=== PATIENT | female | born 1950 | race Caucasian/White ===

== ENCOUNTER → 2017-08-22 07:38 | Outpatient (CLI) | payer OTHER, SELFPAY ==
[2017-08-22 08:13] LABS: Absolute Lymphocyte Count 1.66 X10^3/ul (0.83-4.51); Absolute Neutrophil Count 1.7 X10^3/uL (2.0-7.7); Basophil# 0.01 X10^3/uL; Basophil% 0.3 % (0-1); Eosinophil# 0.07 X10^3/uL; Eosinophils% 1.9 % (0-5); Hematocrit 36.9 % (37-47); Hemoglobin 12.3 g/dl (12.0-15.0); Lymphocyte # 1.66 X10^3/ul (4.0); Mean Corp Hgb Conc 33.3 g/gl (32-36); Mean Corpuscular Hgb 30.2 pg (27.0-32.0); Mean Corpuscular Volume 90.7 fL (81-99); Mean Platelet Vol. 10.9 fl (6.2-12.0); Monocyte# 0.25 X10^3/uL; Monocyte% 6.8 % (0-10); Platelet Count 178 K/mm3 (150-450); RBC Distribution Width CV 13.2 % (11.6-14.6); Red Blood Count 4.07 M/mm3 (4.2-5.4); White Blood Count 3.7 K/mm3 (4.4-11.0)
[2017-08-22 08:15] LABS: POSITIVE COUNT NO; POSITIVE DIFFERENTIAL NO; POSITIVE MORPHOLOGY NO
[2017-08-22 08:43] LABS: AST(SGOT) 17 U/L (15-37); Alanine Aminotransfer ALT/SGPT 37 U/L (13-56); Albumin, Serum 3.8 g/dL (3.2-5.0); Alkaline Phosphatase 66 U/L (45-117); Anion Gap 5 (5-15); BUN 13 mg/dL (7-18); BUN/Creat Ratio 18.7 RATIO (10-20); Calcium,Total 8.7 mg/dL (8.5-10.1); Chloride 106 mmol/L (98-107); Cholesterol 261 mg/dL (200); EST Glomerular Filtration Rate 90 mL/min (>60); Est Glom Filt Rate - Afr Amer 109 mL/min (>60); Globulin 3.7 g/dL (2.2-4.2); Glucose 88 mg/dL (74-106); High Density Lipoprotein 86 mg/dL; Potassium 3.7 mmol/L (3.5-5.1); Protein, Total 7.5 g/dL (6.4-8.2); Sodium Level 142 mmol/L (136-145); T4 Free Direct 1.07 ng/dL (0.76-1.46); Thyroid Stim Hormone (TSH) 2.63 uIU/mL (0.358-3.74); Triglycerides 93 mg/dL; Very Low Density Lipoprotein 19 mg/dL (5-40)
[2017-08-24 09:36] LABS: T3 Total - Triiodothyronine 1.02 ng/mL (0.6-1.81)
== END ==
PROVIDERS: Family Provider Family Medicine; PCP Family Medicine; Visit Provider Family Medicine
DX: Z00.00 Encounter for general adult medical examination without abnormal findings (principal)
CPT/HCPCS: 36415; 80053; 80061; 84439; 84443; 84480; 85025

== ENCOUNTER → 2017-09-08 07:25 | Outpatient (CLI) | payer OTHER, SELFPAY ==
--- NOTE | 2017-09-08 06:59 | HPBI_ITS ---
MAMMOGRAPHY - BILATERAL SCREENING REASON FOR EXAM: Female, 67 years old. Routine annual screening examination. PERTINENT HISTORY: Non-contributory. TECHNIQUE: Digital bilateral breast navya (3D mammographic acquisition) in the CC and MLO projections. 2-D mediolateral oblique (MLO) and craniocaudad (CC) views of both breasts were obtained. CAD: Full Field Digital Mammography with Computer Added Detection was performed. COMPARISON: Comparison is made with prior study dated August 18, 2016 and August 17, 2015. FINDINGS: Breast Composition: The breasts are heterogeneously dense, which may obscure small masses. There are no dominant masses or suspicious calcifications. No other significant abnormalities are identified. There has been no significant change since the prior study. HPBI/SCREENING MAMM (CAD), BILAT IMPRESSION: Stable bilateral screening mammogram. Yearly follow-up mammogram recommended. (A) ASSESSMENT CATEGORY: BIRADS Category 1: Negative. A letter regarding these results will be sent to the patient by the facility within 30 days. Approximately 10% of breast cancers are not detected by mammography. A normal mammogram should not delay biopsy of a clinically suspicious abnormality. [id number] Electronically Signed: Tom Chung MD at 8:15 EST Tel [phone], Service support ,
== END ==
PROVIDERS: Family Provider Family Medicine; PCP Family Medicine; Visit Provider Family Medicine
DX: Z12.31 Encounter for screening mammogram for malignant neoplasm of breast (principal)
CPT/HCPCS: 77063; 77067

== ENCOUNTER → 2018-03-30 06:24 | Outpatient (CLI) | payer OTHER, SELFPAY ==
[2018-03-30 07:54] LABS: Cholesterol 246 mg/dL (200); High Density Lipoprotein 74 mg/dL; Triglycerides 78 mg/dL; Very Low Density Lipoprotein 16 mg/dL (5-40)
== END ==
PROVIDERS: Family Provider Family Medicine; PCP Family Medicine; Visit Provider Family Medicine
DX: E78.00 Pure hypercholesterolemia, unspecified (principal)
CPT/HCPCS: 36415; 80061

== ENCOUNTER → 2019-06-07 16:29 | Outpatient (CLI) | payer SELFPAY ==
--- NOTE | 2019-06-07 16:42 | BI_ITS ---
MAMMOGRAPHY - BILATERAL SCREENING 3-D TOMOSYNTHESIS REASON FOR EXAM: Female, 69 years old. There is bases previously ( PERTINENT HISTORY: No significant family history. TECHNIQUE: 2-D mammograms and 3-D Tomosynthesis of the breast (s) were performed. CAD was performed. COMPARISON: September 08, 2017 FINDINGS: The breast composition is heterogeneously dense breasts similar to what was noted before Scattered benign calcifications are seen. No dense spiculated masses or suspicious microcalcifications are identified. No architectural distortion is identified. There is no skin thickening or nipple retraction. There has been no significant change since the prior study of SEPTEMBER 08, 2017. BI/SCREEN MAMM (CAD) W/NEFTALY BILAT IMPRESSION: No mammographic signs of malignancy. Routine yearly mammograms recommended. ASSESSMENT CATEGORY: BIRADS Category 1: Negative. A letter regarding these results will be sent to the patient by the facility within 30 days. FOLLOW UP RECOMMENDATION: Yearly follow up mammogram recommended. (A) Approximately 10% of breast cancers are not detected by mammography. A normal mammogram should not delay biopsy of a clinically suspicious abnormality. Electronically Signed: Nimco Morton, at 12:52 EST Tel , Service support ,
== END ==
PROVIDERS: Family Provider Family Medicine; PCP Family Medicine; Referring Provider Family Medicine; Visit Provider Family Medicine
DX: Z12.31 Encounter for screening mammogram for malignant neoplasm of breast (principal)
CPT/HCPCS: 77063; 77067

== ENCOUNTER → 2019-06-14 06:23 | Outpatient (CLI) | payer OTHER, SELFPAY ==
[2019-06-14 08:33] LABS: Absolute Lymphocyte Count 2.06 X10^3/uL (0.83-4.51); Absolute Neutrophil Count 2.6 X10^3/uL (2.0-7.7); Basophil# 0.01 X10^3/uL; Basophil% 0.2 % (0-1); Eosinophil# 0.05 X10^3/uL; Hematocrit 38.9 % (37-47); Hemoglobin 12.8 g/dL (12.0-15.0); Lymphocyte # 2.06 X10^3/ul (4.0); Mean Corp Hgb Conc 32.9 g/dL (32-36); Mean Corpuscular Volume 91.1 fL (81-99); Mean Platelet Vol. 11.2 fl (6.2-12.0); Monocyte# 0.34 X10^3/uL; Monocyte% 6.8 % (0-10); NRBC Flagged by Analyzer 0 % (0-5); Neutrophil # 2.55 X10^3/uL (2.7-7.7); Neutrophil % 50.8 % (47-70); Platelet Count 185 K/mm3 (150-450); RBC Distribution Width CV 12.5 % (11.6-14.6); RBC Distribution Width SD 41.5 fl (35.1-43.9); Red Blood Count 4.27 M/mm3 (4.2-5.4)
[2019-06-14 09:11] LABS: AST(SGOT) 19 U/L (15-37); Alanine Aminotransfer ALT/SGPT 40 U/L (13-56); Albumin, Serum 3.7 g/dL (3.2-5.0); Alkaline Phosphatase 74 U/L (45-117); Anion Gap 5 (5-15); BUN 12 mg/dL (7-18); Calcium,Total 8.8 mg/dL (8.5-10.1); Chloride 105 mmol/L (98-107); Cholesterol 242 mg/dL (200); Creatinine, Serum 0.63 mg/dL (0.55-1.02); EST Glomerular Filtration Rate 100 mL/min (>60); Est Glom Filt Rate - Afr Amer 121 mL/min (>60); Free T3 3.1 pg/mL (2.18-3.98); Globulin 3.6 g/dL (2.2-4.2); Glucose 81 mg/dL (74-106); High Density Lipoprotein 77 mg/dL; Potassium 3.7 mmol/L (3.5-5.1); Protein, Total 7.3 g/dL (6.4-8.2); Sodium Level 141 mmol/L (136-145); T4 Free Direct 1.15 ng/dL (0.76-1.46); Thyroid Stim Hormone (TSH) 2.66 uIU/mL (0.358-3.74); Triglycerides 115 mg/dL; Very Low Density Lipoprotein 23 mg/dL (5-40)
== END ==
PROVIDERS: Family Provider Family Medicine; PCP Family Medicine; Referring Provider Family Medicine; Visit Provider Family Medicine
DX: Z00.01 Encounter for general adult medical examination with abnormal findings (principal); E78.5 Hyperlipidemia, unspecified; R53.83 Other fatigue
CPT/HCPCS: 36415; 80053; 80061; 84439; 84443; 84481; 85025

== ENCOUNTER → 2020-07-03 05:56 | Outpatient (CLI) | payer SELFPAY ==
[2020-07-03 07:13] LABS: Absolute Lymphocyte Count 1.82 X10^3/uL (0.83-4.51); Basophil# 0.02 X10^3/uL; Basophil% 0.4 % (0-1); Eosinophil# 0.07 X10^3/uL; Eosinophils% 1.3 % (0-5); Hematocrit 35.2 % (37-47); Hemoglobin 11.2 g/dL (12.0-15.0); Lymphocyte # 1.82 X10^3/ul (4.0); Lymphocyte % 33.5 % (19-41); Mean Corp Hgb Conc 31.8 g/dL (32-36); Mean Corpuscular Hgb 29.2 pg (27.0-32.0); Mean Corpuscular Volume 91.9 fL (81-99); Mean Platelet Vol. 10.1 fl (6.2-12.0); Monocyte# 0.49 X10^3/uL; NRBC Flagged by Analyzer 0 % (0-5); Neutrophil # 3.02 X10^3/uL (2.7-7.7); Neutrophil % 55.4 % (47-70); Platelet Count 239 K/mm3 (150-450); RBC Distribution Width CV 12.9 % (11.6-14.6); RBC Distribution Width SD 42.9 fl (35.1-43.9); Red Blood Count 3.83 M/mm3 (4.2-5.4); White Blood Count 5.4 K/mm3 (4.4-11.0)
[2020-07-03 07:48] LABS: ALB/GLOB Ratio 0.9 RATIO (0.9-2.4); AST(SGOT) 14 U/L (15-37); Alanine Aminotransfer ALT/SGPT 47 U/L (13-56); Albumin, Serum 3.2 g/dL (3.2-5.0); Alkaline Phosphatase 69 U/L (45-117); Anion Gap 5 (5-15); BUN 14 mg/dL (7-18); BUN/Creat Ratio 22.5 RATIO (10-20); Calcium,Total 8.5 mg/dL (8.5-10.1); Chloride 107 mmol/L (98-107); Cholesterol 210 mg/dL (200); Creatinine, Serum 0.62 mg/dL (0.55-1.02); EST Glomerular Filtration Rate 101 mL/min (>60); Est Glom Filt Rate - Afr Amer 123 mL/min (>60); Free T3 2.7 pg/mL (2.18-3.98); Globulin 3.4 g/dL (2.2-4.2); Glucose 83 mg/dL (74-106); High Density Lipoprotein 60 mg/dL; Potassium 3.8 mmol/L (3.5-5.1); Protein, Total 6.6 g/dL (6.4-8.2); Sodium Level 140 mmol/L (136-145); T4 Free Direct 1.25 ng/dL (0.76-1.46); Thyroid Stim Hormone (TSH) 2.36 uIU/mL (0.358-3.74); Triglycerides 126 mg/dL; Very Low Density Lipoprotein 25 mg/dL (5-40)
== END ==
PROVIDERS: PCP Family Medicine; Referring Provider Family Medicine; Visit Provider Family Medicine
DX: Z00.01 Encounter for general adult medical examination with abnormal findings (principal); E78.5 Hyperlipidemia, unspecified; R53.83 Other fatigue
CPT/HCPCS: 36415; 80053; 80061; 84439; 84443; 84481; 85025

== ENCOUNTER → 2020-07-20 12:02 | Outpatient (CLI) | payer SELFPAY ==
--- NOTE | 2020-07-20 12:06 | BI_ITS ---
MAMMOGRAPHY - BILATERAL SCREENING REASON FOR EXAM: Female, 70 years old. Routine annual screening examination. PERTINENT HISTORY: Non-contributory. TECHNIQUE: Digital bilateral breast neftaly (3D mammographic acquisition) in the CC and MLO projections. 2-D mediolateral oblique (MLO) and craniocaudad (CC) views of both breasts were obtained. CAD: Full Field Digital Mammography with Computer Added Detection was performed. COMPARISON: Comparison is made with prior study dated 06/07/2019 and 09/08/2017. FINDINGS: Breast Composition: The breasts are heterogeneously dense, which may obscure small masses. There are no dominant masses or suspicious calcifications. Stable partially calcified nodule in the upper deep medial aspect of the left breast. No other significant abnormalities are identified. There has been no significant change since the prior study. BI/SCREEN MAMM (CAD) W/NEFTALY BILAT IMPRESSION: Stable bilateral screening mammogram. Yearly follow-up mammogram recommended. (A) ASSESSMENT CATEGORY: BIRADS Category 2: Benign. A letter regarding these results will be sent to the patient by the facility within 30 days. Approximately 10% of breast cancers are not detected by mammography. A normal mammogram should not delay biopsy of a clinically suspicious abnormality. [id number] Electronically Signed: Tom Chung, at 13:11 EST , Service support ,
== END ==
PROVIDERS: PCP Family Medicine; Referring Provider Family Medicine; Visit Provider Family Medicine
DX: Z12.31 Encounter for screening mammogram for malignant neoplasm of breast (principal)
CPT/HCPCS: 77063; 77067

== ENCOUNTER 2021-07-26 08:02 | Outpatient (CLI) | payer SELFPAY ==
--- NOTE | 2021-07-26 08:17 | MRI_ITS ---
EXAM: MR HEAD WITHOUT AND WITH INTRAVENOUS CONTRAST CLINICAL INDICATION: Left ear tinnitus x1 year. Attention IACs. TECHNIQUE: Multiplanar and multisequence MR images of the brain were obtained without and with intravenous contrast. This report was created using [employer] report [employer] technology. CONTRAST: IV 12mL Dotarem COMPARISON: None. FINDINGS: BRAIN AND EXTRA-AXIAL SPACES: Small nonspecific subcortical white matter T2 FLAIR hyperintensity foci in both cerebral hemispheres. No focal signal abnormalities throughout the brain parenchyma. No abnormal enhancing lesions intraaxially and extra-axially. No intra- or extra-axial hemorrhage. No evidence of acute infarct. No intracranial mass or mass effect. There is preservation of the andrews/white matter interface. Posterior fossa structures are unremarkable. Ventricles are appropriate for age. No hydrocephalus. Basal cisterns are patent. SELLA: Unremarkable. Normal sella turcica, pituitary gland, infundibular stalk, optic chiasm and hypothalamus. AUDITORY SYSTEM: Unremarkable. The internal auditory canals are patent. BONES/JOINTS: No abnormal enhancing lesions along the 7th and 8th cranial nerves and the membranous labyrinths. SINUSES: Unremarkable as visualized. Clear. MASTOID AIR CELLS: Unremarkable as visualized. Clear. ORBITS: Unremarkable as visualized. Both globes, extraocular muscles, optic nerves and retrobulbar fat appear unremarkable. VASCULATURE: Unremarkable as visualized. Normal flow voids in the major intracranial circulation. OTHER FINDINGS: Normal 7th and 8th nerve bundles. Normal cochlea, vestibules and semicircular canals. MRI/Brain W/WO Contrast IMPRESSION: 1. Normal MRI of the bilateral IACs without and with contrast. 2. Few small nonspecific subcortical white matter T2 FLAIR hyperintensity foci in both cerebral hemispheres. They may be secondary to microvascular disease. Electronically Signed: Obie Hurst MD at 10:54 EST , Service support ,
[2021-07-26 08:40] LABS: CREATININE FINGERSTICK < 0.6 mg/dL (0.55-1.02); EGFR FINGERSTICK > 60.0000 mL/min (>60)
== END 2021-07-26 23:59 | disposition short-term general hospital (02) ==
PROVIDERS: PCP Family Medicine; Visit Provider Otolaryngology
DX: H93.12 Tinnitus, left ear (principal)
CPT/HCPCS: 70553; A9575

== ENCOUNTER → 2022-10-13 | Outpatient (CLI) | payer SELFPAY ==
--- NOTE | 2022-10-13 10:32 | BI_ITS ---
MAMMOGRAPHY - BILATERAL SCREENING REASON FOR EXAM: Female, 72 years old. Routine annual screening examination. PERTINENT HISTORY: Sister with breast cancer. TECHNIQUE: Digital bilateral breast neftaly (3D mammographic acquisition) in the CC and MLO projections. 2-D mediolateral oblique (MLO) and craniocaudad (CC) views of both breasts were obtained. CAD: Full Field Digital Mammography with Computer Added Detection was performed. COMPARISON: Comparison is made with prior examination dated July 20, 2020 and June 07, 2019. FINDINGS: Breast Composition: The breasts are heterogeneously dense, which may obscure small masses. There are no dominant masses or suspicious calcifications. Stable small partially calcified nodule in the upper deep medial aspect of the left breast. No other significant abnormalities are identified. There has been no significant change since the prior study. BI/SCRN MAMM (CAD)W/NEFTALY BILAT IMPRESSION: Stable bilateral screening mammogram. Yearly follow-up mammogram recommended. (A) ASSESSMENT CATEGORY: BIRADS Category 2: Benign. A letter regarding these results will be sent to the patient by the facility within 30 days. Approximately 10% of breast cancers are not detected by mammography. A normal mammogram should not delay biopsy of a clinically suspicious abnormality. [id number] Electronically Signed: Tom Chung MD at 12:40 EDT ,
[2022-10-13 10:44] LABS: Absolute Lymphocyte Count 2.42 X10^3/uL (0.83-4.51); Absolute Neutrophil Count 2.6 X10^3/uL (2.0-7.7); Basophil# 0.02 X10^3/uL; Basophil% 0.4 % (0-1); Eosinophil# 0.05 X10^3/uL; Eosinophils% 0.9 % (0-5); Hematocrit 37.6 % (37-47); Hemoglobin 12.4 g/dL (12.0-15.0); Lymphocyte # 2.42 X10^3/ul (0.83-4.51); Lymphocyte % 44.1 % (19-41); Mean Corpuscular Hgb 30.1 pg (27.0-32.0); Mean Corpuscular Volume 91.3 fL (81-99); Mean Platelet Vol. 10.9 fl (6.2-12.0); Monocyte# 0.36 X10^3/uL; Monocyte% 6.6 % (0-10); NRBC Flagged by Analyzer 0 % (0-5); Neutrophil # 2.63 X10^3/uL (2.7-7.7); Neutrophil % 47.8 % (47-70); Platelet Count 225 K/mm3 (150-450); RBC Distribution Width CV 12.4 % (11.6-14.6); RBC Distribution Width SD 41.3 fl (35.1-43.9); Red Blood Count 4.12 M/mm3 (4.2-5.4); White Blood Count 5.5 K/mm3 (4.4-11.0)
[2022-10-13 11:23] LABS: ALB/GLOB Ratio 1.2 RATIO (0.9-2.4); AST(SGOT) 17 U/L (15-37); Alanine Aminotransfer ALT/SGPT 32 U/L (13-56); Albumin, Serum 3.8 g/dL (3.2-5.0); Alkaline Phosphatase 76 U/L (45-117); Anion Gap 5 (5-15); BUN 12 mg/dL (7-18); BUN/Creat Ratio 18.7 RATIO (10-20); Chloride 106 mmol/L (98-107); Cholesterol 255 mg/dL (200); Creatinine, Serum 0.64 mg/dL (0.55-1.02); EST Glomerular Filtration Rate 97 mL/min (>60); Est Glom Filt Rate - Afr Amer 118 mL/min (>60); Free T3 2.7 pg/mL (2.18-3.98); Globulin 3.3 g/dL (2.2-4.2); Glucose 92 mg/dL (74-106); High Density Lipoprotein 70 mg/dL; Potassium 3.7 mmol/L (3.5-5.1); Protein, Total 7.1 g/dL (6.4-8.2); Sodium Level 138 mmol/L (136-145); T4 Free Direct 1.09 ng/dL (0.76-1.46); Thyroid Stim Hormone (TSH) 1.82 uIU/mL (0.358-3.74); Triglycerides 115 mg/dL; Very Low Density Lipoprotein 23 mg/dL (5-40)
== END | disposition home or self-care (01) ==
LOC: OPBI 10:24
PROVIDERS: PCP Family Medicine; Referring Provider Family Medicine; Visit Provider Family Medicine
DX: Z12.31 Encounter for screening mammogram for malignant neoplasm of breast (principal)
CPT/HCPCS: 36415; 77063; 77067; 80053; 80061; 84439; 84443; 84481; 85025

== ENCOUNTER → 2023-11-07 | Outpatient (CLI) | payer SELFPAY ==
[2023-11-07 08:04] LABS: Absolute Lymphocyte Count 2.38 X10^3/uL (0.83-4.51); Absolute Neutrophil Count 2.1 X10^3/uL (2.0-7.7); Basophil# 0.02 X10^3/uL; Basophil% 0.4 % (0-1); Eosinophil# 0.09 X10^3/uL; Eosinophils% 1.8 % (0-5); Hemoglobin 12.9 g/dL (12.0-15.0); Lymphocyte # 2.38 X10^3/ul (0.83-4.51); Lymphocyte % 47.9 % (19-41); Mean Corp Hgb Conc 33.1 g/dL (32-36); Mean Corpuscular Hgb 30.1 pg (27.0-32.0); Mean Corpuscular Volume 90.9 fL (81-99); Mean Platelet Vol. 10.2 fl (6.2-12.0); Monocyte# 0.35 X10^3/uL; NRBC Flagged by Analyzer 0 % (0-5); Neutrophil # 2.12 X10^3/uL (2.7-7.7); Neutrophil % 42.7 % (47-70); Platelet Count 249 K/mm3 (150-450); Red Blood Count 4.29 M/mm3 (4.2-5.4)
[2023-11-07 08:54] LABS: ALB/GLOB Ratio 1.1 RATIO (0.9-2.4); AST(SGOT) 18 U/L (15-37); Alanine Aminotransfer ALT/SGPT 29 U/L (13-56); Albumin, Serum 3.6 g/dL (3.2-5.0); Alkaline Phosphatase 63 U/L (45-117); Anion Gap 2 (5-15); BUN 13 mg/dL (7-18); BUN/Creat Ratio 18.2 RATIO (10-20); Calcium,Total 9.3 mg/dL (8.5-10.1); Chloride 107 mmol/L (98-107); Cholesterol 247 mg/dL (200); Creatinine, Serum 0.72 mg/dL (0.55-1.02); EST Glomerular Filtration Rate 85 mL/min (>60); Est Glom Filt Rate - Afr Amer 103 mL/min (>60); Free T3 2.9 pg/mL (2.18-3.98); Globulin 3.3 g/dL (2.2-4.2); Glucose 97 mg/dL (74-106); High Density Lipoprotein 71 mg/dL; Potassium 3.9 mmol/L (3.5-5.1); Protein, Total 6.9 g/dL (6.4-8.2); Sodium Level 140 mmol/L (136-145); T4 Free Direct 1.08 ng/dL (0.76-1.46); Thyroid Stim Hormone (TSH) 2.24 uIU/mL (0.358-3.74); Triglycerides 81 mg/dL; Very Low Density Lipoprotein 16 mg/dL (5-40)
== END | disposition home or self-care (01) ==
PROVIDERS: PCP Family Medicine; Referring Provider Family Medicine; Visit Provider Family Medicine
DX: Z00.01 Encounter for general adult medical examination with abnormal findings (principal); E78.5 Hyperlipidemia, unspecified; R53.83 Other fatigue
CPT/HCPCS: 36415; 80053; 80061; 84439; 84443; 84481; 85025

== ENCOUNTER → 2023-11-25 | Outpatient (CLI) | payer SELFPAY ==
--- NOTE | 2023-11-25 08:37 | BI_ITS ---
MAMMOGRAPHY - BILATERAL SCREENING REASON FOR EXAM: Female, 73 years old. Routine annual screening examination. PERTINENT HISTORY: Sister with breast cancer. TECHNIQUE: Digital bilateral breast neftaly (3D mammographic acquisition) in the CC and MLO projections. 2-D mediolateral oblique (MLO) and craniocaudad (CC) views of both breasts were obtained. CAD: Full Field Digital Mammography with Computer Added Detection was performed. COMPARISON: Comparison is made with prior study October 13, 2022 and July 20, 2020. FINDINGS: Breast Composition: The breasts are heterogeneously dense, which may obscure small masses. There are no dominant masses or suspicious calcifications. Stable 7.6 mm partially calcified nodule in the upper deep medial aspect of the left breast. No other significant abnormalities are identified. There has been no significant change since the prior study. BI/SCRN MAMM (CAD)W/NEFTALY BILAT IMPRESSION: Stable bilateral screening mammogram. Yearly follow-up mammogram recommended. (A) ASSESSMENT CATEGORY: BIRADS Category 2: Benign. A letter regarding these results will be sent to the patient by the facility within 30 days. Approximately 10% of breast cancers are not detected by mammography. A normal mammogram should not delay biopsy of a clinically suspicious abnormality. [id number] Electronically Signed: Tom Chung MD at 12:38 EDT ,
== END | disposition home or self-care (01) ==
PROVIDERS: PCP Family Medicine; Referring Provider Family Medicine; Visit Provider Family Medicine
DX: Z12.31 Encounter for screening mammogram for malignant neoplasm of breast (principal); Z80.3 Family history of malignant neoplasm of breast
CPT/HCPCS: 77063; 77067

== ENCOUNTER 2025-03-27 15:54 | Observation (INO) | payer SELFPAY ==
[2025-03-27 16:00] VITALS: BP 188/69; PULSE 78; RESP 18; TEMP 35.7; O2SAT 98; BMI 26.7
--- NOTE | 2025-03-27 16:02 | ED.RN ---
ED physicians stated do not need to call stroke alert at this time d/t resolved symptoms.
[2025-03-27 16:28] VITALS: BMI 26.4
--- NOTE | 2025-03-27 16:28 | EKG12_ITS ---
Test Reason : Blood Pressure : */* mmHG Vent. Rate : 73 BPM Atrial Rate : 73 BPM P-R Int : 228 ms QRS Dur : 68 ms QT Int : 386 ms P-R-T Axes : 42 -7 32 degrees QTcB Int : 425 ms Sinus rhythm with 1st degree A-V block Otherwise normal ECG Confirmed by Mando Munoz ([id number]), film editor supervisor [facility] ([id number]) on 03/28/2025 11:59:32 AM Referred By: Confirmed By: Mando Munoz
--- NOTE | 2025-03-27 16:28 | CT_ITS ---
PROCEDURE: CT STROKE BRAIN/HEAD WITHOUT CONT; STROKE CTA HEAD AND NECK W/CON 03/27/2025 REASON FOR EXAM: RIGHT SIDED NUMBNESS TECHNIQUE: Procedure Code: CTBR.ST; CTCTA.ST.HN Modality: CT Procedure: STROKE BRAIN/HEAD WITHOUT CONT; STROKE CTA HEAD AND NECK W/CON Coronal and Sagittal reconstruction series were provided. 3D/MIP postprocessing was performed. 100 cc of Isovue 370 intravenous contrast was administered. One or more dose reduction techniques were used (e.g., Automated exposure control, adjustment of the mA and/or kV according to patient size, use of iterative reconstruction technique. RADIATION DOSE SUMMARY: Head: CTDlvol: 44.99 mGy DLP: 782.05 mGycm CTA head/neck: CTDlvol: 33.69 mGy DLP: 605.34 mGycm COMPARISON: None. FINDINGS: CTA HEAD: Patent intracranial arterial vasculature. No large vessel occlusion, flow- limiting stenosis, saccular aneurysm, or vascular malformation identified. Dural venous sinuses appear patent. CTA NECK: Conventional aortic arch branching. Bilateral cervical carotid and codominant vertebral arteries are patent without significant stenosis. No aneurysm or dissection. NONCONTRAST CT HEAD: No acute intracranial hemorrhage, extra-axial collection, mass effect or evidence of acute infarct. Ventricles and subarachnoid spaces are normal in size. Orbital contents are unremarkable. Intact skull base and calvarium. Well-aerated paranasal sinuses and mastoid air cells. CT/STROKE Brain/Head without Cont IMPRESSION: No acute intracranial abnormality. Widely patent intracranial and cervical arterial vasculature. Reading Location: [facility]
--- NOTE | 2025-03-27 16:28 | CT_ITS ---
PROCEDURE: CT STROKE BRAIN/HEAD WITHOUT CONT; STROKE CTA HEAD AND NECK W/CON 03/27/2025 REASON FOR EXAM: RIGHT SIDED NUMBNESS TECHNIQUE: Procedure Code: CTBR.ST; CTCTA.ST.HN Modality: CT Procedure: STROKE BRAIN/HEAD WITHOUT CONT; STROKE CTA HEAD AND NECK W/CON Coronal and Sagittal reconstruction series were provided. 3D/MIP postprocessing was performed. 100 cc of Isovue 370 intravenous contrast was administered. One or more dose reduction techniques were used (e.g., Automated exposure control, adjustment of the mA and/or kV according to patient size, use of iterative reconstruction technique. RADIATION DOSE SUMMARY: Head: CTDlvol: 44.99 mGy DLP: 782.05 mGycm CTA head/neck: CTDlvol: 33.69 mGy DLP: 605.34 mGycm COMPARISON: None. FINDINGS: CTA HEAD: Patent intracranial arterial vasculature. No large vessel occlusion, flow- limiting stenosis, saccular aneurysm, or vascular malformation identified. Dural venous sinuses appear patent. CTA NECK: Conventional aortic arch branching. Bilateral cervical carotid and codominant vertebral arteries are patent without significant stenosis. No aneurysm or dissection. NONCONTRAST CT HEAD: No acute intracranial hemorrhage, extra-axial collection, mass effect or evidence of acute infarct. Ventricles and subarachnoid spaces are normal in size. Orbital contents are unremarkable. Intact skull base and calvarium. Well-aerated paranasal sinuses and mastoid air cells. CT/STROKE CTA Head AND Neck W/Con IMPRESSION: No acute intracranial abnormality. Widely patent intracranial and cervical arterial vasculature. Reading Location: [facility]
--- NOTE | 2025-03-27 16:29 | ED.VIS.STROK ---
HPI History of Present Illness Chief Complaint: Numb/Ting Informant: patient and spouse/S.O. Narrative Narrative: 75-year-old female presents with numbness to the right side of her body that started around 2 hours ago, she thinks it lasted a couple minutes at the most and resolved on its own. She think she felt weak on the right side at the same time but that resolved as well. This involved her right upper extremity, her right proximal lower extremity, and the right side of the face, did not cross the midline to the left side but it involves her scalp to some degree. The face and scalp were the last area to resolve today. She states she checked her blood pressure around this time and it was 159 systolic which is extremely high for her, she usually runs very normal. She states right now she is asymptomatic except for feeling some mild discomfort/funny feeling on the top of her head but denies it being headache. She had no other prodromal symptoms or associated symptoms. No chest pain, shortness of breath, palpitations, sudden onset headache, vision changes, or recent illness/fall/injury. She states that she did have an episode of right sided numbness in her face only that occurred 2 days ago for less than a minute but she had no other symptoms with it. She does not take any antiplatelet or anticoagulant medications, but after this episode 2 days ago she took a baby aspirin and then again yesterday. She states the reason for this was because 2 days ago she had some discomfort in the posterior aspect of her right thigh that felt like burning that is gone now and she thought maybe it was a blood clot although she has never had 1 before and denies any edema. Additionally, she has had no recent immobilization, long travel, hospitalization, surgery, or unilateral leg calf pain or swelling. [facility] Medical History (Updated 03/27/25 @ 18:[address] Ronnie Hernández MD) Mitral valve prolapse Hx of thyroid nodule Allergy/AdvReac Type Severity Reaction Status Date / Time No Known Allergies Allergy Verified 03/27/25 15:59 Social History Smoking Status: Never smoker ROS ROS ED Constitutional Constitutional ED: Denies chills or fever(s) Eyes Eyes: Denies change in vision or diplopia ENT ENT ED: Denies rhinorrhea or sore throat Cardiovascular Cardiovascular: Denies chest pain or palpitations Respiratory/Chest Respiratory/Chest: Denies cough or dyspnea Gastrointestinal Gastrointestinal: Denies abdominal pain, diarrhea, nausea or vomiting Genitourinary Genitourinary ED: Denies dysuria or hematuria Musculoskeletal Musculoskeletal: Denies back pain or neck pain Integumentary Denies abscess or rash Neurologic Neurologic: Reports paresthesias RUE and RLE; Denies headache(s) or weakness Psychiatric Psychiatric: Denies anxiety or suicidal thoughts EXAM Physical Exam Const Vital Signs: 03/27/25 16:00 03/27/25 16:28 03/27/25 17:25 Temperature 96.3 F L Temperature Source Temporal Pulse Rate 78 77 Respiratory Rate 18 16 Blood Pressure 188/69 H 153/59 H Blood Pressure Mean 108 90 Pulse Ox 98 100 Oxygen Delivery Method Room Air Room Air Room Air 03/27/25 17:25 03/27/25 18:00 Temperature Temperature Source Pulse Rate 75 67 Respiratory Rate 18 19 H Blood Pressure 153/59 H 142/66 H Blood Pressure Mean 90 91 Pulse Ox 100 100 Oxygen Delivery Method Room Air Room Air Positive well nourished and well developed General Appearance ED: well developed and NAD HEENT Reports moist mucous membranes normocephalic and atraumatic Eyes PERRL and EOMs intact bilaterally Neck full ROM and supple Resp normal respiratory effort and clear to auscultation bilaterally Cardio regular rate, regular rhythm and no murmurs GI non-tender and non-distended Auscultation: normoactive bowel sounds Palpation: soft Back/Spine no CVA tenderness General Back: other FROM Extremity normal to inspection General Extremety ED: Negative for edema, pulses abnormal or tenderness General Extremity: Negative for edema or pulses abnormal Neuro oriented x3, CN's II-XII intact bilaterally and no sensory deficits noted Sensorium / Orientation: awake and alert Motor Exam: strength 5/5 throughout Skin no rashes or lesions noted and no wounds MDM MDM MDM Narrative Medical decision making narrative: The patient's blood pressure is even higher now than it was at home, 188/69. In context of the symptoms my concern is for a TIA. She needs to be admitted to the hospital after having initial testing here which was done. I reviewed imaging and results of CT brain and CT angiography of the head and neck, and agree with the results. Basically negative with patent vessels. No LVO. Therefore stroke alert was de-escalated, patient has had no recurrent symptoms, her blood pressures gradually come down to the 140s, and I discussed with hospitalist. Sinus rhythm on the EKG. Lab Data Attestation: I reviewed the patient's lab results. Labs: Laboratory Results - last 24 hr 03/27/25 03/27/25 16:40 16:44 WBC 6.1 RBC 4.21 Hgb 12.6 Hct 37.5 MCV 89.1 MCH 29.9 MCHC 33.6 RDW Std Deviation 39.9 RDW Coeff of Janine 12.3 Plt Count 217 MPV 10.4 Immature Gran % (Auto) 0.200 Neut % (Auto) 58.7 Lymph % (Auto) 33.1 Cascade % (Auto) 6.2 Eos % (Auto) 1.3 Baso % (Auto) 0.5 Absolute Neuts (auto) 3.6 Absolute Lymphs (auto) 2.02 Nucleated RBC % 0 PT 12.3 INR 0.9 APTT 26.5 Sodium 140 Potassium 3.7 Chloride 105 Carbon Dioxide 24.1 Anion Gap 11 BUN 14 Creatinine 0.67 L Estim Creat Clear Calc 51.57 Est GFR (MDRD) Non-Af 92 BUN/Creatinine Ratio 21.3 H Glucose 99 Calcium 9.9 Troponin T High Sens 8 POC Glucose 100 Radiography Diagnostic Testing: Clinical Impression(s) from Imaging Studies Brain CT 03/27/25 16:28 IMPRESSION: No acute intracranial abnormality. Widely patent intracranial and cervical arterial vasculature. Reading Location: [id number] Head/Neck CTA 03/27/25 16:28 IMPRESSION: No acute intracranial abnormality. Widely patent intracranial and cervical arterial vasculature. Reading Location: [id number] Rhythm Strip Rhythm Strip: Sinus Rhythm Rate: 75 Ectopy: None EKG Initial EKG: Attestation: I personally reviewed and interpreted this EKG as follows: Interpretation: Sinus Rhythm, No Acute Injury Pattern and AV Block (First-degree) Comments: Other than prolonged WI interval, other intervals are all normal, axis is normal, no acute injury pattern. Management Discussion w/another healthcare provider: Hospitalist Discharge Plan Triage Chief Complaint: Numb/Ting ED Provider: Ronnie Hernández Dx/Rx/DC Orders Clinical Impression: Brain TIA Primary Care Provider: Mile Perdomo Referrals: Mile Perdomo DO [Primary Care Provider] - Print Language: British Disposition Disposition: [facility] NIHSS NIHSS 1a. Level of Consciousness: 0 - Alert; keenly responsive 1b. LOC Questions: 0 - Answers BOTH questions correctly 1c. LOC Commands: 0 - Performs BOTH tasks correctly 2. Best Gaze: 0 - Normal 3. Visual: 0 - No visual loss 4. Facial Palsy: 0 - Normal symmetrical movements 5a. Left Arm: 0 - No drift; arm holds 90 (or 45) degrees for full 10 seconds 5b. Right Arm: 0 - No drift; arm holds 90 (or 45) degrees for full 10 seconds 6a. Left Le - No drift; leg holds 30-degree position for full 5 seconds 6b. Right Le - No drift; leg holds 30-degree position for full 5 seconds 7. Limb Ataxia: 0 - Absent 8. Sensory: 0 - Normal; no sensory loss 9. Best Language: 0 - No aphasia; normal 10. Dysarthria: 0 - Normal 11. Extinction and Inattention: 0 - No abnormality Total: 0 Stroke Questions Stroke Team Activated: No (sx resolved) IV Thrombolytic Administered: No (sx resolved)
[2025-03-27 16:52] LABS: Hematocrit 37.5 % (37-47); Hemoglobin 12.6 g/dL (12.0-15.0); Immature Granulocytes Count 0.010 X10^3/uL (0.0-0.0); Mean Corp Hgb Conc 33.6 g/dL (32-36); Mean Corpuscular Volume 89.1 fL (81-99); Mean Platelet Vol. 10.4 fl (6.2-12.0); NRBC Flagged by Analyzer 0 % (0-5); Platelet Count 217 K/mm3 (150-450); RBC Distribution Width CV 12.3 % (11.6-14.6); RBC Distribution Width SD 39.9 fl (35.1-43.9); Red Blood Count 4.21 M/mm3 (4.2-5.4); White Blood Count 6.1 K/mm3 (4.4-11.0)
[2025-03-27 17:24] LABS: Anion Gap 11 (5-15); BUN 14 mg/dL (4-19); BUN/Creat Ratio 21.3 RATIO (10-20); Calcium,Total 9.9 mg/dL (7.6-11.0); Carbon Dioxide 24.1 mmol/L (21.0-32.0); Chloride 105 mmol/L (98-108); Estimated Creatinine Clearance 51.57 ml/min (50-250); Glucose 99 mg/dL (70-99); Potassium 3.7 mmol/L (3.3-5.1); Troponin T High Sensitivity 8 ng/L (<=14)
[2025-03-27 17:25] VITALS: BP 153/59; PULSE 75; PULSE 77; RESP 16; RESP 18; O2SAT 100
[2025-03-27 17:37] LABS: Prothrombin Time (Protime)PT. 12.3 SECONDS (11.7-14.9)
[2025-03-27 17:38] LABS: Partial Thromboplast Time 26.5 Seconds (24.1-36.2)
[2025-03-27 18:00] VITALS: BP 142/66; PULSE 67; RESP 19; O2SAT 100
[2025-03-27 18:30] VITALS: BP 157/65; PULSE 66; RESP 16; O2SAT 100
[2025-03-27 18:45] VITALS: BP 157/65; PULSE 66; RESP 16; TEMP 36.6; O2SAT 100
--- NOTE | 2025-03-27 19:23 | PCM.HP.STD ---
HPI - General General Date of Admission: 03/27/25 Date of Service: 03/27/25 Chief Complaint: Transient right sided numbness and weakness HPI Narrative BALTAZAR EMERSON, is a 75-year-old female with history of mitral valve prolapse presented [facility] [place] ED 03/27/2025 with numbness to the right side of her body that started about 2 hours ago and lasted couple of minutes and then resolved on its own. She thinks maybe she was weak at that time, right side as well but it also resolved. She did note an episode of right sided numbness in her face that occurred 2 days ago for less than a minute but had no other additional symptoms. In the ED temp 96.3, rate of 78 blood pressure 188/69, respiratory 18 pulse ox 98% on room air. NIH of 0. CBC no acute abnormality, BMP no evidence of endorgan damage, troponin 8.CT head negative, CTA head and neck no acute process. Given the concerns for TIA hospitalist contacted for admission for TIA/CVA rule out. Patient evaluated at bedside, reports the right sided arm numbness 2 hours prior to arrival that also seem to go up onto her face and into her leg but she does not recall if it was her whole leg or not, felt a little bit weak on that side as well at the time but symptoms resolved quickly. On Thursday she had some numbness and tingling on the right lower portion of her face that resolved in less than a minute. Denies any headache or changes in vision. No other new or acute complaints. [facility] Medical History (Updated 03/27/25 @ 19:[address] Monse Medina MD) Hx of thyroid nodule Mitral valve prolapse Home Medications ?Medication ?Instructions ?Recorded ?Last Taken ?Type NK 03/27/25 Unknown History Allergy/AdvReac Type Severity Reaction Status Date / Time No Known Allergies Allergy Verified 03/27/25 15:59 Social History Smoking Status: Never smoker ROS ROS Narrative General: Denies fever/chills HENT: Denies headache, denies stuffy nose, denies sore throat EYES: Denies changes in vision Resp: Denies cough, denies shortness of breath Cardiac: Denies chest pain GI: Denies abdominal pain, denies changes in bowel, denies nausea/vomiting : Denies changes in urination Extremity: Denies swelling MSK: Transient right-sided weakness but is resolved Neuro: Transient right-sided numbness and tingling Heme: Denies any bleeding or bruising Skin: Denies rashes Psychiatric: No complaints voiced Vital Signs Vital Signs Vital Signs: 03/27/25 16:00 03/27/25 16:28 03/27/25 17:25 Temperature 96.3 F L Temperature Source Temporal Pulse Rate 78 77 Respiratory Rate 18 16 Blood Pressure 188/69 H 153/59 H Blood Pressure Mean 108 90 Pulse Ox 98 100 Oxygen Delivery Method Room Air Room Air Room Air 03/27/25 17:25 03/27/25 18:00 03/27/25 18:30 Temperature Temperature Source Pulse Rate 75 67 66 Respiratory Rate 18 19 H 16 Blood Pressure 153/59 H 142/66 H 157/65 H Blood Pressure Mean 90 91 95 Pulse Ox 100 100 100 Oxygen Delivery Method Room Air Room Air Room Air 03/27/25 18:45 Temperature 97.9 F Temperature Source Pulse Rate 66 Respiratory Rate 16 Blood Pressure 157/65 H Blood Pressure Mean 95 Pulse Ox 100 Oxygen Delivery Method Weight Weight: 62.142 kg Body Mass Index (BMI) 26.7 Physical Exam Narrative General: Alert, oriented, no apparent distress HEENT: Atraumatic, normocephalic Eyes: Anicteric, normal conjunctiva, extraocular movements intact, pupils equal Neck: Supple Respiratory: Clear to auscultation bilaterally, normal respiratory effort Cardiovascular: Regular rate and rhythm GI: Soft, nontender, nondistended Extremities: No edema Musculoskeletal: Strength 5 out of 5 in right upper extremity, 5 out of 5 left upper extremity, 5 out of 5 right lower extremity, 5 out of 5 left lower extremity Neuro: No overt focal neurological deficits, cranial nerves II through XII intact, [id number] without significant difficulty bilaterally Skin: No rashes appreciated Psych: Cooperative Results Lab / Micro Data 03/27/25 16:40 03/27/25 16:40 Labs: Laboratory Results - last 24 hr 03/27/25 16:40: WBC 6.1, RBC 4.21, Hgb 12.6, Hct 37.5, MCV 89.1, MCH 29.9, MCHC 33.6, RDW Std Deviation 39.9, RDW Coeff of Janine 12.3, Plt Count 217, MPV 10.4, Immature Gran % (Auto) 0.200, Neut % (Auto) 58.7, Lymph % (Auto) 33.1, [place] % (Auto) 6.2, Eos % (Auto) 1.3, Baso % (Auto) 0.5, Absolute Neuts (auto) 3.6, Absolute Lymphs (auto) 2.02, Nucleated RBC % 0, PT 12.3, INR 0.9, APTT 26.5, Sodium 140, Potassium 3.7, Chloride 105, Carbon Dioxide 24.1, Anion Gap 11, BUN 14, Creatinine 0.67 L, Estim Creat Clear Calc 51.57, Est GFR (MDRD) Non-Af 92, BUN/Creatinine Ratio 21.3 H, Glucose 99, Calcium 9.9, Troponin T High Sens 8 03/27/25 16:44: POC Glucose 100 Rhythm Strip Rhythm Strip: Sinus Rhythm Rate: 75 Ectopy: None Imaging Radiology Impression Brain CT 03/27/25 16:28 IMPRESSION: No acute intracranial abnormality. Widely patent intracranial and cervical arterial vasculature. Reading Location: [id number] Head/Neck CTA 03/27/25 16:28 IMPRESSION: No acute intracranial abnormality. Widely patent intracranial and cervical arterial vasculature. Reading Location: [id number] Assessment & Plan Assessment/Plan (1) Neurologic abnormality: PLAN: Plan # Transient right-sided body numbness and weakness -Admit to tele -CT head w/ no acute process -CTA head and neck no LVO -MRI ordered -NIH q4hr -asa, statin -Echo -PT/OT/Speech eval -Teleneuro consult placed -Hold BP medications to allow for permissive hypertension for 24 hours unless SBP greater than 220 or DBP greater than 120 or until stroke is ruled out # Hypertension -Allowing permissive hypertension as above -TSH ordered - If patient remains hypertensive after acute period can consider starting patient on medication #DVT ppx: SCDs Monse Medina MD Charges/Coding Visit Charges Inpatient E&M: 38202 Init Hosp L1
--- NOTE | 2025-03-27 19:41 | ECHOD_ITS ---
Reason For Study Reason For Study: TIA/CVA Procedure This was a 2D Doppler, Color Flow transthoracic echocardiogram. Exam performed portable in patient room. Left Ventricle Normal LV size. Left ventricular systolic function is normal. The left ventricular ejection fraction is 65 %. Normal diastology for age. No regional wall motion abnormalities noted. Right Ventricle Normal RV size. Normal systolic function. Atria The left and right atria are normal. No doppler evidence for ASD. Mitral Valve There is Mild focal posterior mitral annular calcification. Mild (1+) mitral valve insufficiency. Tricuspid Valve Normal tricuspid valve. Mild (1+) tricuspid valve insufficiency. Pulmonary artery systolic pressure is 23 mmHg. Aortic Valve Trisinus/trileaflet aortic valve. Mild focal aortic valve calcification. Trivial aortic valve insufficiency. Pulmonic Valve Normal pulmonic valve. Mild (1+) pulmonic valve insufficiency. Great Vessels Normal sized aortic root. Pericardium/Pleural No pericardial effusion. MMode/2D Measurements & Calculations LVIDd: 3.7 cm IVSd: 0.89 cm Ao root diam: 2.5 cm LVIDs: 1.8 cm LVPWd: 0.86 cm RVDd: 3.2 cm FS: 50.6 % LAV(MOD-bp): 30.4 ml LVAd ap4: 21.2 cm2 LVAd ap2: 20.8 cm2 LAV(MOD-bp) Indexed: 19.3 ml/m2 LVLd ap4: 6.9 cm LVLd ap2: 7.2 cm LAV(MOD-sp2): 37.7 ml EDV(MOD-sp4): 55.9 ml EDV(MOD-sp2): 49.8 ml LAV(MOD-sp4): 17.4 ml EDV(sp4-el): 54.9 ml EDV(sp2-el): 51.3 ml LVAs ap4: 11.2 cm2 LVAs ap2: 10.4 cm2 LVLs ap4: 6.0 cm LVLs ap2: 5.9 cm ESV(MOD-sp4): 18.0 ml ESV(MOD-sp2): 15.2 ml ESV(sp4-el): 17.8 ml ESV(sp2-el): 15.4 ml EF(MOD-sp4): 67.7 % EF(MOD-sp2): 69.4 % EF(sp4-el): 67.6 % SV(MOD-sp4): 37.9 ml SV(MOD-sp2): 34.5 ml SV(sp4-el): 37.2 ml SI(MOD-sp4): 24.0 ml/m2 SI(MOD-sp2): 21.9 ml/m2 LA A4 area: 9.0 cm2 LA dimension(2D): 3.8 cm RA A4 area: 7.4 cm2 TAPSE: 2.0 cm Time Measurements MV dec time: 0.22 sec Doppler Measurements & Calculations MV E max jabari: 82.3 cm/sec Lat Peak E' Jabari: 7.9 cm/sec Med Peak E' Jabari: 6.9 cm/sec MV A max jabari: 95.2 cm/sec E/E' lat: 10.4 E/E' med: 11.9 MV E/A: 0.86 Ao V2 max: 113.5 cm/sec LV V1 max: 99.1 cm/sec MV dec slope: 380.3 cm/sec2 Ao max P.1 mmHg LV V1 max P.9 mmHg Ao V2 mean: 80.4 cm/sec LV V1 mean P.9 mmHg Ao mean P.8 mmHg LV V1 mean: 65.4 cm/sec Ao V2 VTI: 23.9 cm LV V1 VTI: 21.7 cm AV (velocity ratio): 0.91 PA V2 max: 78.2 cm/sec PI end-d jabari: 124.0 cm/sec TR max jabari: 222.4 cm/sec TR max P.8 mmHg ECHO/Echo Complete Interpretation Summary The left ventricular ejection fraction is 65 %. Mild (1+) mitral valve insufficiency. Mild (1+) tricuspid valve insufficiency. Ordering Physician: Monse Medina Referring Physician: Mile Perdomo Performed By: Sana Forrester, FLAQUITA, RVT
[2025-03-27 19:59] LABS: Troponin T High Sens 2 HR 7 ng/L (<=14)
[2025-03-27 20:10] VITALS: BMI 26.4
[2025-03-27 20:18] VITALS: BP 184/81; PULSE 70; RESP 16; TEMP 36.7; O2SAT 99
[2025-03-27 20:43] LABS: Troponin T High Sens 4 HR 10 ng/L (<=14)
[2025-03-27] MEDS: 0.9% Normal Saline (1000mL) 1,000 ML 50 ML IV (20:57)
[2025-03-28 00:45] VITALS: BP 140/64; PULSE 69; RESP 16; TEMP 37; O2SAT 97
[2025-03-28 04:45] VITALS: BP 129/60; PULSE 73; RESP 16; TEMP 36.6; O2SAT 100
[2025-03-28 05:00] VITALS: BMI 26.4
[2025-03-28 05:46] LABS: Hematocrit 35.2 % (37-47); Hemoglobin 11.9 g/dL (12.0-15.0); Immature Granulocytes Count 0.010 X10^3/uL (0.0-0.0); Mean Corp Hgb Conc 33.8 g/dL (32-36); Mean Corpuscular Volume 88.4 fL (81-99); Mean Platelet Vol. 10.8 fl (6.2-12.0); NRBC Flagged by Analyzer 0 % (0-5); Platelet Count 198 K/mm3 (150-450); RBC Distribution Width CV 12.4 % (11.6-14.6); RBC Distribution Width SD 40.4 fl (35.1-43.9); Red Blood Count 3.98 M/mm3 (4.2-5.4); White Blood Count 5.9 K/mm3 (4.4-11.0)
[2025-03-28 06:29] LABS: Anion Gap 11 (5-15); BUN 13 mg/dL (4-19); BUN/Creat Ratio 21.1 RATIO (10-20); Calcium,Total 9.0 mg/dL (7.6-11.0); Carbon Dioxide 22.9 mmol/L (21.0-32.0); Chloride 106 mmol/L (98-108); Cholesterol 232 mg/dL (<=200); Estimated Creatinine Clearance 51.27 ml/min (50-250); Glucose 95 mg/dL (70-99); Low Density Lipoprotein Calc. 141 mg/dL; Potassium 3.9 mmol/L (3.3-5.1); Triglycerides 74 mg/dL; Very Low Density Lipoprotein 15 mg/dL (5-40); cholesterol:hdl ratio screen 3.06
[2025-03-28 08:45] VITALS: BP 157/61; PULSE 67; RESP 16; TEMP 36.6; O2SAT 99
--- NOTE | 2025-03-28 09:35 | MRI_ITS ---
PROCEDURE: BRAIN WITHOUT CONTRAST 03/28/2025 REASON FOR EXAM: TIA RULE OUT TECHNIQUE: Procedure Code: MRIBR Modality: MR Procedure: BRAIN WITHOUT CONTRAST Multiplanar and multisequence images were obtained. COMPARISON: July 26, 2021, March 27, 2025 FINDINGS: Brain: T2 prolongation is seen in the periventricular white matter. Smaller foci in the deep white matter and subcortical white matter of the frontal and parietal lobes. No evidence of acute ischemia or hemorrhage. Ventricles: Mild volume loss. No hydrocephalus. Major Intracranial Vessels: Normal flow voids; correlate with CT angiogram 1 day prior. Sinuses: Clear. Mastoids: Clear. MRI/Brain without Contrast IMPRESSION: Chronic microvascular ischemic changes. Mild volume loss. No evidence of acut e ischemia or hemorrhage. Reading Location: [id number]
--- NOTE | 2025-03-28 10:38 | CASEMGMT ---
Social Work Per imaging pt negative for stroke, therefore PHQ9 not completed. JESSICA Carreno
--- NOTE | 2025-03-28 11:48 | CHAPLAIN ---
Type of Pastoral Visit _x__ Initial Visit ___ Follow-up Visit ___ On-call Visit ___ General Patient Visit ___ Spiritual Assessment ___ Family Conference ___ Bereavement ___ Rapid Response ___ Code Blue ___ Other (describe below) Pastoral Care Referral From _x__ Patient _x__ Family ___ Nurse ___ Physician ___ Fire Alarm Operator ___ Print Color Matcher ___ Other (describe below) Sacrament/Intervention _x__ Active listening ___ Anointing ___ Buddhism ___ Bereavement ___ Communion ___ Elisabeth exploration ___ ___ Life review _x__ Prayer ___ Reconciliation ___ Sacrament of Sick _x__ Supportive presence ___ Wedding ___ Other (describe below) Pastoral Comments patient and family members are in the room; pt gives reason for coming to hospital; all agree it is a good idea to be checked out for health issues when there are symptoms; pt agrees that prayer would be the welcome kind of support; pt is thankful for family care; no other needs at this time
--- NOTE | 2025-03-28 11:50 | STROKE.CONS ---
Assessment and Plan: Stroke Assessment/Plan BALTAZAR EMERSON is a 75 F with a history of HTN, MVP who presents for evaluation of numbness and tingling on right side. Now resolved. Neurological examination shows NIH 0. Neuroimaging shows MRI without stroke. CTA no stenosis or occlusion . TIA - Anti-platelet medication: Aspirin 81 mg daily - Occupational/ Physical therapy consults - NPO until swallow evaluation. IVF until able to take po - DVT prophylaxis with SCDs and heparin SQ - Vascular risk factor modification. The following are the recommended guidelines: LDL Goal < 70 Smoking Cessation Diabetes Management skilled nursing blood pressure control should achieve <130/80 mmHg. BP management should aim to achieve superintendent container terminal contorl in a reasonable amount of time, taking into consideration the individual patient's requirements and characteristics. Weight Management: Goal for BMI is 18.5 -24.9 kg/m2 Alcohol: No more than 2 drinks/day for men or 1 drink/day for non- women - Promote lifestyle modification: weight control, physical activity, moderation of alcohol intake, moderate sodium intake. - Transfer to [facility] for the following reasons: Followup with PCP in 1-2 weeks, and in Neurology clinic in 6-12 weeks HPI Consult Data Date of Consult: 03/28/25 HPI Narrative HPI Narrative: BALTAZAR EMERSON, is a 75 F who presents [facility] Medical History Mitral valve prolapse Hx of thyroid nodule Home Medications ?Medication ?Instructions ?Recorded ?Last Taken ?Type NK 03/27/25 Unknown History Allergy/AdvReac Type Severity Reaction Status Date / Time No Known Allergies Allergy Verified 03/27/25 20:33 Social History Smoking Status: Never smoker Vital Signs Vital Signs Vital Signs: 03/27/25 16:00 03/27/25 16:28 03/27/25 17:25 Temperature 96.3 F L Temperature Source Temporal Pulse Rate 78 77 Pulse Strength Respiratory Rate 18 16 Respiratory Effort Respiratory Depth Respiratory Pattern Blood Pressure 188/69 H 153/59 H Blood Pressure Mean 108 90 Blood Pressure Source Blood Pressure Position Blood Pressure Location Pulse Ox 98 100 Oxygen Delivery Method Room Air Room Air Room Air 03/27/25 17:25 03/27/25 18:00 03/27/25 18:30 Temperature Temperature Source Pulse Rate 75 67 66 Pulse Strength Respiratory Rate 18 19 H 16 Respiratory Effort Respiratory Depth Respiratory Pattern Blood Pressure 153/59 H 142/66 H 157/65 H Blood Pressure Mean 90 91 95 Blood Pressure Source Blood Pressure Position Blood Pressure Location Pulse Ox 100 100 100 Oxygen Delivery Method Room Air Room Air Room Air 03/27/25 18:45 03/27/25 20:18 03/27/25 21:00 Temperature 97.9 F 98.0 F Temperature Source Oral Pulse Rate 66 70 Pulse Strength Respiratory Rate 16 16 Respiratory Effort Normal Non-Labored Respiratory Depth Normal Respiratory Pattern Normal Blood Pressure 157/65 H 184/81 H Blood Pressure Mean 95 115 Blood Pressure Source Monitor Blood Pressure Position Sitting Blood Pressure Location Right Arm Pulse Ox 100 99 Oxygen Delivery Method Room Air Room Air 03/28/25 00:45 03/28/25 04:45 03/28/25 04:45 Temperature 98.6 F 97.8 F Temperature Source Oral Oral Pulse Rate 69 73 Pulse Strength Respiratory Rate 16 16 Respiratory Effort Normal Non-Labored Respiratory Depth Normal Respiratory Pattern Normal Blood Pressure 140/64 H 129/60 H Blood Pressure Mean 89 83 Blood Pressure Source Monitor Monitor Blood Pressure Position Semi-Fowlers Semi-Fowlers Blood Pressure Location Right Arm Right Arm Pulse Ox 97 100 Oxygen Delivery Method Room Air Room Air Room Air 03/28/25 08:45 03/28/25 08:50 03/28/25 08:50 Temperature 97.8 F Temperature Source Oral Pulse Rate 67 Pulse Strength Normal (2+) Respiratory Rate 16 Respiratory Effort Normal Non-Labored Respiratory Depth Normal Respiratory Pattern Normal Blood Pressure 157/61 H Blood Pressure Mean 93 Blood Pressure Source Monitor Blood Pressure Position Semi-Fowlers Blood Pressure Location Right Arm Pulse Ox 99 Oxygen Delivery Method Room Air Room Air Weight Weight: 61.4 kg Body Mass Index (BMI) 26.4 EEG Results Procedure Details EEG Procedure Details: BALTAZAR EMERSON is a 75 year old F with a past medical history of , who presents for evaluation of Electroencephalogram on DATE at TIME Lab / Micro Data 03/28/25 05:22 03/28/25 05:22 Labs: Laboratory Results - last 24 hr 03/27/25 16:40: WBC 6.1, RBC 4.21, Hgb 12.6, Hct 37.5, MCV 89.1, MCH 29.9, MCHC 33.6, RDW Std Deviation 39.9, RDW Coeff of Janine 12.3, Plt Count 217, MPV 10.4, Immature Gran % (Auto) 0.200, Neut % (Auto) 58.7, Lymph % (Auto) 33.1, Howard % (Auto) 6.2, Eos % (Auto) 1.3, Baso % (Auto) 0.5, Absolute Neuts (auto) 3.6, Absolute Lymphs (auto) 2.02, Nucleated RBC % 0, PT 12.3, INR 0.9, APTT 26.5, Sodium 140, Potassium 3.7, Chloride 105, Carbon Dioxide 24.1, Anion Gap 11, BUN 14, Creatinine 0.67 L, Estim Creat Clear Calc 51.57, Est GFR (MDRD) Non-Af 92, BUN/Creatinine Ratio 21.3 H, Glucose 99, Calcium 9.9, Troponin T High Sens 8 03/27/25 16:44: POC Glucose 100 03/27/25 18:43: Troponin T Hi Sens 2 Hr 7 03/27/25 20:17: Troponin T Hi Sens 4Hr 10 03/28/25 05:22: WBC 5.9, RBC 3.98 L, Hgb 11.9 L, Hct 35.2 L, MCV 88.4, MCH 29.9, MCHC 33.8, RDW Std Deviation 40.4, RDW Coeff of Janine 12.4, Plt Count 198, MPV 10.8, Immature Gran % (Auto) 0.200, Neut % (Auto) 51.3, Lymph % (Auto) 38.8, Howard % (Auto) 7.9, Eos % (Auto) 1.3, Baso % (Auto) 0.5, Absolute Neuts (auto) 3.0, Absolute Lymphs (auto) 2.30, Nucleated RBC % 0, Sodium 139, Potassium 3.9, Chloride 106, Carbon Dioxide 22.9, Anion Gap 11, BUN 13, Creatinine 0.64 L, Estim Creat Clear Calc 51.27, Est GFR (MDRD) Non-Af 93, BUN/Creatinine Ratio 21.1 H, Glucose 95, Hemoglobin A1c 5.8 H, Calcium 9.0, Triglycerides 74, Cholesterol 232 H, LDL Cholesterol, Calc 141, VLDL Cholesterol 15, HDL Cholesterol 76, Cholesterol/HDL Ratio 3.06, TSH 4.170 Rhythm Strip Rhythm Strip: Sinus Rhythm Rate: 75 Ectopy: None Imaging Radiology Impression Brain CT 03/27/25 16:28 IMPRESSION: No acute intracranial abnormality. Widely patent intracranial and cervical arterial vasculature. Reading Location: [facility] Head/Neck CTA 03/27/25 16:28 IMPRESSION: No acute intracranial abnormality. Widely patent intracranial and cervical arterial vasculature. Reading Location: [facility] Echocardiogram 03/27/25 19:41 Interpretation Summary The left ventricular ejection fraction is 65 %. Mild (1+) mitral valve insufficiency. Mild (1+) tricuspid valve insufficiency. Ordering Physician: Monse Medina Referring Physician: Mile Perdomo Performed By: Sana Forrester, FLAQUITA, RVT Brain MRI 03/28/25 09:35 IMPRESSION: Chronic microvascular ischemic changes. Mild volume loss. No evidence of acute ischemia or hemorrhage. Reading Location: [facility] Active Medications Active Medications Active Medications: Current Medications Generic Name Dose Route Start Last Admin Trade Name Freq PRN Reason Stop Dose Admin Acetaminophen 650 mg 03/27/25 20:07 Acetaminophen 325 Mg Tablet PO Q6H PRN PRN Pain 1-10 Or Fever >100.7 Albuterol Sulfate 2.5 mg 03/27/25 20:07 Albuterol 2.5 Mg/3 Ml Vial.Neb. INHALATION Q2H PRN PRN SOB &/OR WHEEZING Aspirin 81 mg 03/28/25 08:00 03/28/25 08:53 Aspirin 81 Mg Tab.Chew PO 81 mg BREAKFAST JOSE LUIS Administration Atorvastatin Calcium 80 mg 03/27/25 22:00 03/27/25 20:57 Atorvastatin Calcium 80 Mg Tablet PO 80 mg QHS JOSE LUIS Administration Hydralazine HCl 5 mg 03/27/25 20:07 Hydralazine 20 Mg/Ml Vial IV 03/28/25 20:07 Q30M PRN maintain BP parameters with HR <60 Sodium Chloride 250 mls @ 15 mls/hr 03/27/25 20:12 IV .[id number] PRN Saline Flush Sodium Chloride 250 mls @ 15 mls/hr 03/27/25 20:12 IV .[id number] PRN Additional IVPB Infusion Labetalol HCl 20 mg 03/27/25 16:28 Labetalol 20 Mg/4 Ml Vial IV 03/28/25 16:28 X1 PRN BLOOD PRESSURE Labetalol HCl 10 - 20 mg 03/27/25 20:07 Labetalol 20 Mg/4 Ml Vial IV 03/28/25 20:07 Q10M PRN PRN maintain BP parameters with HR >/=60 Melatonin 10 mg 03/27/25 20:07 Melatonin 10 Mg Tablet PO QHS PRN PRN INSOMNIA Ondansetron HCl 4 mg 03/27/25 20:07 Ondansetron 4 Mg/2 Ml Vial IV Q8H PRN PRN NAUSEA/VOMITING Senna/Docusate Sodium 2 tablet 03/27/25 20:07 Senna/Docusate Sodium 1 Tablet PO BID PRN PRN Constipation Sodium Chloride 10 - 40 ml 03/27/25 20:12 0.9% Saline Lock 10 Ml Syringe IV UD PRN SALINE FLUSH NIHSS NIHSS Nursing Documentation NIHSS Nursing Documentation: NIH Stroke Scale Start: 03/27/25 16:22 Freq: Status: Discharge Protocol: Activity Type Activity Date Activity User E-sign Co-sign Detail Recorded Client Recorded Date Recorded By Document 03/27/25 16:32 [facility] [id number] 03/27/25 16:33 AMS 03/27/25 16:32 NIH Stroke Scale [NIHSS] A score of 0 is normal or asymptomatic . Total possible score is 42. Inpatient: RN or Physician to activate a stroke alert for onset of new stroke symptoms or with NIHSS increase >/= 3 points. Following change in neurological status, NIHSS will be performed per physician order or more frequently PRN. -1a. Level of Consciousness 0 - Alert; keenly responsive -1b. LOC Questions 0 - Answers BOTH questions correctly -1c. LOC Commands 0 - Performs BOTH tasks correctly -2. Best Gaze 0 - Normal -3. Visual 0 - No visual loss -4. Facial Palsy 0 - Normal symmetrical movements -5a. Left Arm 0 - No drift; arm holds 90 ( or 45) degrees for full 10 seconds -5b. Right Arm 0 - No drift; arm holds 90 ( or 45) degrees for full 10 seconds -6a. Left Leg 0 - No drift; leg holds 30- degree position for full 5 seconds -6b. Right Leg 0 - No drift; leg holds 30- degree position for full 5 seconds -7. Limb Ataxia 0 - Absent -8. Sensory 0 - Normal; no sensory loss -9. Best Language 0 - No aphasia; normal -10. Dysarthria 0 - Normal -11. Extinction and Inattention 0 - No abnormality -Total 0 Query Text:A score of 0 is normal or asymptomatic. Total possible score is 42 . ED: Notify Physician for NIHSS increase by > / = 3 points. Inpatient: RN or Physician to activate a stroke alert for NIHSS increase of > / = 3 points. NIHSS: Ischemic Stroke/TIA Start: 03/27/25 20:07 Text: For PCU Patients: NIH and Neuro Check every 4 Status: Active hours, PRN and with change in RN caregiver. Freq: [id number] Protocol: Activity Type Activity Date Activity User E-sign Co-sign Detail Recorded Client Recorded Date Recorded By Document 03/28/25 08:45 [id number] 03/28/25 08:52 03/28/25 08:45 -1a. Level of Consciousness 0 - Alert; keenly responsive -1b. LOC Questions 0 - Answers BOTH questions correctly -1c. LOC Commands 0 - Performs BOTH tasks correctly -2. Best Gaze 0 - Normal -3. Visual 0 - No visual loss -4. Facial Palsy 0 - Normal symmetrical movements -5a. Left Arm 0 - No drift; arm holds 90 ( or 45) degrees for full 10 seconds -5b. Right Arm 0 - No drift; arm holds 90 ( or 45) degrees for full 10 seconds -6a. Left Leg 0 - No drift; leg holds 30- degree position for full 5 seconds -6b. Right Leg 0 - No drift; leg holds 30- degree position for full 5 seconds -7. Limb Ataxia 0 - Absent -8. Sensory 0 - Normal; no sensory loss -9. Best Language 0 - No aphasia; normal -10. Dysarthria 0 - Normal -11. Extinction and Inattention 0 - No abnormality -Total 0 Query Text:A score of 0 is normal or asymptomatic. Total possible score is 42 . ED: Notify Physician for NIHSS increase by > / = 3 points. Inpatient: RN or Physician to activate a stroke alert for NIHSS increase of > / = 3 points. Coma Scale [Assess] -Eye Opening Spontaneous -Motor Obeys Commands -Verbal Oriented [Total] -Coma Scale Total 15
[2025-03-28 12:45] VITALS: BP 144/65; PULSE 73; RESP 16; TEMP 36.7; O2SAT 98
--- NOTE | 2025-03-28 16:04 | DCINST_ITS ---
Discharge Instructions DC O2, CPAP, BIPAP needs Home O2 Discharge instructions: No Dressing / Incision Discharge Activity: Return to Normal Activity Weight Bearing Status: Weight bearing as tolerated Dressing / Incision Call your doctor if you observe: Fever of 101 or Higher, Shortness of breath, Dizziness, Fainting spells, Chest pain and Increased palpitations (irregular heartbeat) Follow Up Care Test Results: Test results from this visit will be discussed in further detail at your follow- up appointment, if applicable. Discharge Plan Admission Admit Date/Time: 03/27/25 19:23 Primary Reason for Your Visit: TIA Attending Provider: Doreen Childers Primary Care Provider: Mile Perdomo Consulting Providers: Evan Penaloza; Amara Horn; Sabrina Gaming; Shelly Shukla; Gloria Linares; Robert Hale; Mary Ann aMncia; Pascual Murray; Priyank Chaney; Scar Orta; Maia Padilla; Vicki Tenorio; Evaristo Lo; Raysa Geiger; Tae Foley; Roque Vogel; Jesus Adrian; Bar Morris; Jose Vicente; Kenna Samuel; Chloe Laws; Monse Medina Instructions Patient Instructions: TIA Dc Additional Instructions / Restrictions: eat a healthy mediterranean diet. Abstain from smoking and don't have more than 1 drink a day Discharge Orders/Prescriptions Prescriptions: New atorvastatin 80 mg Tablet 80 mg PO QHS Qty: 30 2RF aspirin 81 mg Tablet,Chewable 81 mg PO BREAKFAST Qty: 30 2RF amlodipine 10 mg tablet 10 mg PO DAILY Qty: 30 1RF Referrals / Follow Up: Mile Perdomo DO [Primary Care Provider] - Within 1 Week Juan Martin MD [Non-Staff -Ordering Privileges] - Within 1 Month Disposition Disposition (needs filled in before D/C Order can be placed): Home, Self Care
--- NOTE | 2025-03-28 16:07 | PCM.DC.SUM ---
Providers Date of Admission: 03/27/25 Date of Discharge: 03/28/25 Primary Care Physician: Dr. Mile Perdomo, DO Consultations 03/27/25 20:07 Consult: Tele-Neurology Routine Consulting Provider: [facility] Reason for Consult: Concern for TIA EMERGENT Consult: No MD Notified: Yes Date Notified: 03/27/25 Time Notified: 20:31 Method of Notification: Answering Service Nursing Unit Staff Notify [facility] of Tele-Neurology Consult: Yes Reason For Visit: TIA RULE OUT Diagnosis Discharge Diagnosis (1) Neurologic abnormality: Status: Acute Code(s): R29.818 - Other symptoms and signs involving the nervous system Medications at Discharge Home Medications amlodipine 10 mg tablet 10 mg PO DAILY #30 tabs 03/28/25 aspirin 81 mg chewable tablet 81 mg PO BREAKFAST #30 tabs 03/28/25 atorvastatin 80 mg tablet 80 mg PO QHS #30 tabs 03/28/25 Hospital Course Operations None Procedures 2-D Echocardiogram Summary of Care Provided Minutes Spent on Discharge: 41 Hospital Course: Patient is a 75-year-old female with a past medical history as outlined was admitted to the ED on 03/27/2025 with a complaint of transient right-sided numbness and weakness. She said the symptoms started about 2 hours prior to admission and lasted just about 2 minutes and resolved on its own. She also noted some right-sided numbness on her face which resolved after about a minute and occurred about 2 days prior to admission. Did not have any other symptoms. On admission blood pressure was elevated at 188/69 but vitals were otherwise stable. NIH stroke scale was 0. Labs were essentially unremarkable. CT of the brain showed no acute intracranial pathology and CTA head and neck showed no hemodynamically significant stenosis. She was admitted. TIA and stroke rule out. She had 2D echo which showed EF of 65% and mild mitral and tricuspid valve insufficiency. MRI of the brain was done which was negative for stroke. Neurology reviewed and recommended starting her on aspirin 81 mg daily. She was also placed on statin. Her blood pressure had been elevated so she was placed on p.o. amlodipine 10 mg daily. She was counseled to eat a heart healthy diet and to abstain from smoking and not have more than 1 drink per day. She was discharged home on 03/28/2025 and is follow-up with her primary care doctor and follow-up with neurology on outpatient basis. Patient was seen and examined prior to discharge. She had no active complaints. Her daughter and granddaughter were by her bedside. Review of systems otherwise negative. Labs and vitals reviewed. Home medication reviewed and reconciled. Physical Exam Const alert, oriented x3 and no apparent distress General Appearance: cooperative, comfortable and well kempt Orientation / Consciousness: awake Exam Limitations: no limitations HEENT normocephalic, head/scalp atraumatic, moist oral mucous membranes and oropharynx normal Mouth: oral and palatal mucosa normal Eyes PERRL, EOMs intact bilaterally and conjunctivae normal Neck no lymphadenopathy and supple Resp normal respiratory effort, no use of accessory muscles and clear to auscultation bilaterally Cardio regular rate, regular rhythm, S1 normal heart sound, S2 normal heart sound and no murmurs GI normal to inspection, nondistended, normoactive bowel sounds, soft to palpation and non-tender Extremity normal to inspection, full ROM and no clubbing, cyanosis or edema Skin no rashes or lesions noted Neuro oriented x3, CN's II-XII intact bilaterally, moves all extremities and no focal motor deficits Sensorium / Orientation: awake and alert Motor Exam: strength 5/5 throughout Psych affect normal Weight / BMI Weight Weight: 135 lb 5.821 oz Body Mass Index (BMI) 26.4 ABG / Lab / Microbiology Data 03/28/25 05:22 03/28/25 05:22 Laboratory: Laboratory Results - last 24 hr 03/27/25 16:40: WBC 6.1, RBC 4.21, Hgb 12.6, Hct 37.5, MCV 89.1, MCH 29.9, MCHC 33.6, RDW Std Deviation 39.9, RDW Coeff of Janine 12.3, Plt Count 217, MPV 10.4, Immature Gran % (Auto) 0.200, Neut % (Auto) 58.7, Lymph % (Auto) 33.1, [place] % (Auto) 6.2, Eos % (Auto) 1.3, Baso % (Auto) 0.5, Absolute Neuts (auto) 3.6, Absolute Lymphs (auto) 2.02, Nucleated RBC % 0, PT 12.3, INR 0.9, APTT 26.5, Sodium 140, Potassium 3.7, Chloride 105, Carbon Dioxide 24.1, Anion Gap 11, BUN 14, Creatinine 0.67 L, Estim Creat Clear Calc 51.57, Est GFR (MDRD) Non-Af 92, BUN/Creatinine Ratio 21.3 H, Glucose 99, Calcium 9.9, Troponin T High Sens 8 03/27/25 16:44: POC Glucose 100 03/27/25 18:43: Troponin T Hi Sens 2 Hr 7 03/27/25 20:17: Troponin T Hi Sens 4Hr 10 03/28/25 05:22: WBC 5.9, RBC 3.98 L, Hgb 11.9 L, Hct 35.2 L, MCV 88.4, MCH 29.9, MCHC 33.8, RDW Std Deviation 40.4, RDW Coeff of Janine 12.4, Plt Count 198, MPV 10.8, Immature Gran % (Auto) 0.200, Neut % (Auto) 51.3, Lymph % (Auto) 38.8, [place] % (Auto) 7.9, Eos % (Auto) 1.3, Baso % (Auto) 0.5, Absolute Neuts (auto) 3.0, Absolute Lymphs (auto) 2.30, Nucleated RBC % 0, Sodium 139, Potassium 3.9, Chloride 106, Carbon Dioxide 22.9, Anion Gap 11, BUN 13, Creatinine 0.64 L, Estim Creat Clear Calc 51.27, Est GFR (MDRD) Non-Af 93, BUN/Creatinine Ratio 21.1 H, Glucose 95, Hemoglobin A1c 5.8 H, Calcium 9.0, Triglycerides 74, Cholesterol 232 H, LDL Cholesterol, Calc 141, VLDL Cholesterol 15, HDL Cholesterol 76, Cholesterol/HDL Ratio 3.06, TSH 4.170 Radiography Diagnostic Testing: Radiology Impression Brain CT 03/27/25 16:28 IMPRESSION: No acute intracranial abnormality. Widely patent intracranial and cervical arterial vasculature. Reading Location: [facility] Head/Neck CTA 03/27/25 16:28 IMPRESSION: No acute intracranial abnormality. Widely patent intracranial and cervical arterial vasculature. Reading Location: [facility] Echocardiogram 03/27/25 19:41 Interpretation Summary The left ventricular ejection fraction is 65 %. Mild (1+) mitral valve insufficiency. Mild (1+) tricuspid valve insufficiency. Ordering Physician: Monse Medina Referring Physician: Mile Perdomo Performed By: Sana Forrester, RDCS, RVT Brain MRI 03/28/25 09:35 IMPRESSION: Chronic microvascular ischemic changes. Mild volume loss. No evidence of acute ischemia or hemorrhage. Reading Location: [facility] D/C Instructions Discharge Activity: Return to Normal Activity Weight Bearing Status: Weight bearing as tolerated Call your doctor if you observe: Fever of 101 or Higher, Shortness of breath, Dizziness, Fainting spells, Chest pain and Increased palpitations (irregular heartbeat) DC O2, CPAP, BIPAP Needs Home O2 Discharge instructions: No DC home with Oxygen: No Meaningful Use Info Meaningful Use Meaningful Use Diagnoses (Choose all that apply): None applicable Discharge Plan Admission Admit Date/Time: 03/27/25 19:23 Primary Reason for Your Visit: TIA Attending Provider: Doreen Childers Primary Care Provider: Mile Perdomo Consulting Providers: Evan Penaloza; Amara Horn; Sabrina Gaming; Shelly Shukla; Gloria Linares; Robert Hale; Mary Ann Mancia; Pascual Murray; Priyank Chaney; Scar Orta; Maia Padilla; Vicki Tenorio; Evaristo Lo; Raysa Geiger; Tae Foley; Roque Vogel; Jesus Adrian; Bar Morris; Jose Vicente; Kenna Samuel; Chloe Laws; Monse Medina Instructions Patient Instructions: TIA Dc Additional Instructions / Restrictions: eat a healthy mediterranean diet. Abstain from smoking and don't have more than 1 drink a day Discharge Orders/Prescriptions Prescriptions: New atorvastatin 80 mg Tablet 80 mg PO QHS Qty: 30 2RF aspirin 81 mg Tablet,Chewable 81 mg PO BREAKFAST Qty: 30 2RF amlodipine 10 mg tablet 10 mg PO DAILY Qty: 30 1RF Referrals / Follow Up: Mile Perdomo DO [Primary Care Provider, Family Practice] - Within 1 Week Juan Martin MD [Non-Staff -Ordering Privileges, Neurology] - Within 1 Month Disposition Disposition (needs filled in before D/C Order can be placed): Home, Self Care Charges/Coding Visit Charges Inpatient E&M: 66659 Disch Hosp >30min
[2025-03-28 16:09] VITALS: BMI 26.4
== END 2025-03-28 16:42 | disposition home or self-care (01) ==
LOC: ED 18:16 → PCU 20:04
PROVIDERS: Admitting Provider Internal Medicine; Emergency Provider Emergency Medicine; PCP Family Medicine; Visit Provider Student in an Organized Health Care Education/Training Program
DX: R29.818 Other symptoms and signs involving the nervous system (principal); I10 Essential (primary) hypertension; R20.0 Anesthesia of skin; R20.2 Paresthesia of skin; I08.3 Combined rheumatic disorders of mitral, aortic and tricuspid valves; I37.1 Nonrheumatic pulmonary valve insufficiency; I44.0 Atrioventricular block, first degree
CPT/HCPCS: 36415; 70450; 70496; 70498; 70551; 80048; 80061; 82962; 83036; 84443; 84484; 85025; 85610; 85730; 93005; 93306; 97802; 99221; 99285; Q9967; G0378